=== PATIENT | male | born 1960 | race Caucasian/White ===

== ENCOUNTER 2017-01-29 06:23 | Day surgery (SDC) | payer BC ==
[~2017-01-29 06:23] MED LIST: KETOROLAC TROMETHAMINE 0.45% 4 DROP/0.4 ML DROPERETTE OD PRN
[2017-01-29] MEDS ORDERED: FENTANYL CITRATE INJ/PF 250 MCG/5 ML AMPULE ONE (06:45)
[2017-01-29] MEDS ORDERED: MIDAZOLAM 2 MG/2 ML INJ ONE ×2 (06:45→07:25)
[2017-01-29] MEDS ORDERED: FENTANYL CITRATE INJ/PF 100 MCG/2 ML AMPUL ONE (06:46)
[2017-01-29] MEDS: TROPICAMIDE 1% OPH SOLN 3 ML OD PRN ×3 (06:52→07:09)
[2017-01-29] MEDS: CYCLOPENTOLATE 0.2%/PHENYLEPHRINE 1% OPH SOLN 2 ML OD PRN ×3 (06:52→07:09)
[2017-01-29] MEDS: BESIFLOXACIN HCL 0.6% OPH SUSP 5 ML BOTTLE OD PRN ×4 (06:52→07:57)
[2017-01-29] MEDS: TETRACAINE HCL 0.5% OPH SOLN 2 ML OD PRN ×3 (06:52→07:34)
[2017-01-29] MEDS ORDERED: EPINEPHRINE INJ/PF 1 MG/1 ML AMPULE ONE (07:06)
[2017-01-29] MEDS ORDERED: LIDOCAINE 1% INJ-PF (10 MG/ML) 30 ML SDV ONE (07:06)
[2017-01-29] MEDS ORDERED: CHONDR SU A NA/HYALUR INTRAOC KIT (SURGICARE) ONE (07:06)
[2017-01-29] MEDS ORDERED: ONDANSETRON HCL INJ/PF 4 MG/2 ML SDV ONE (07:25)
--- NOTE | 2017-01-30 08:08 | [facility] OPERATIVE REPORT E ---
[facility] Operative Report NAME: PHIL HOPSON AGE: 56Y DATE OF SURGERY: 01/29/2017 ROOM: PREOPERATIVE DIAGNOSIS: CATARACT, RIGHT EYE. POSTOPERATIVE DIAGNOSIS: CATARACT, RIGHT EYE. OPERATION: Cataract extraction with intraocular lens implant of the right eye. SURGEON: DELISA DELCID M.D. ANESTHESIA: Topical. PROCEDURE: After obtaining appropriate consent, the patient's right eye was prepped and draped in sterile fashion as well as the surgeon in a sterile manner and cataract surgery was started. First a paracentesis blade was used to make a small side-port incision. Viscoelastic was used to inflate the anterior chamber. Next a 2.4 mm incision was made with the paracentesis blade. A continuous capsulorrhexis incision was made using a cystotome and Utrata forceps. Following this hydrodissection was carried out to make the lens fully loose and mobile and it was rotated 90 degrees. Following this, a cvrefn-vnn-wpzvyab technique was used to phacoemulsify the lens with a CDE of 12.84. The remaining cortex was removed with irrigation/aspiration. Provisc was instilled into the capsular bag to inflate the bag. A SN60WF, 21.0 diopter lens was placed. The remaining viscoelastic material was removed with irrigation/aspiration. Following this, a 10-0 Nylon suture was used to close the incision and it was found to be watertight. Vigamox was instilled in the eye and a protective shield was placed over the eye. The patient returned to the postoperative recovery in stable condition. DICTATING PHYSICIAN: DELISA DELCID M.D. 1265M 01 PHY#: [id number] ID: [id number] JOB#: [id number] ACCT: [id number] cc:DELISA DELCID M.D. >
--- NOTE | 2017-01-30 11:53 | [facility] DISCHARGE SUMMARY E ---
[facility] Discharge Summary NAME: PHIL HOPSON AGE: 56Y ADMITTED: 01/29/2017 DISCHARGED: 01/29/2017 HOSPITAL COURSE This is a 56-year-old patient who underwent cataract extraction of the right eye. DIAGNOSIS: CATARACT, RIGHT EYE. INDICATIONS: He underwent surgery because he was having glare from headlights, making it difficult to drive. DISCHARGE INSTRUCTIONS: He should be on a regular diet; no bending at his waist; no heavy lifting. He should use his Besivance, Ilevro and Durezol at 3:00 p.m. and 8:00 p.m.; and, sleep with a rigid shield, and I will see him for 1-day postoperative tomorrow. DICTATING PHYSICIAN: DELISA DELCID M.D. 1265M 03 [facility]#: [id number] ID: [id number] JOB#: [id number] ACCT: [id number] cc:DELISA DELCID M.D. >
== END 2017-01-29 08:34 | disposition home or self-care (01) ==
LOC: SC 06:23
PROVIDERS: ATTEND Internal Medicine
PROC: 08RJ3JZ Replacement of Right Lens with Synthetic Substitute, Percutaneous Approach (ICD-10-PCS; principal; 2017-01-29 07:30)
DX: H25.811 Combined forms of age-related cataract, right eye (principal); I10 Essential (primary) hypertension
CPT/HCPCS: 66984; V2632; J2250; J3490 ×2; J0171; J3010; J2405; 142

== ENCOUNTER 2017-02-19 09:03 | Day surgery (SDC) | payer BC ==
[~2017-02-19 09:03] MED LIST changes: -KETOROLAC TROMETHAMINE 0.45% 4 DROP/0.4 ML DROPERETTE OD PRN; +KETOROLAC TROMETHAMINE 0.45% 4 DROP/0.4 ML DROPERETTE OS PRN
[2017-02-19] MEDS ORDERED: EPINEPHRINE INJ/PF 1 MG/1 ML AMPULE ONE (09:11)
[2017-02-19] MEDS ORDERED: LIDOCAINE 1% INJ-PF (10 MG/ML) 30 ML SDV ONE (09:11)
[2017-02-19] MEDS ORDERED: CHONDR SU A NA/HYALUR INTRAOC KIT (SURGICARE) ONE (09:11)
[2017-02-19] MEDS: BESIFLOXACIN HCL 0.6% OPH SUSP 5 ML BOTTLE OS PRN ×4 (09:38→10:33)
[2017-02-19] MEDS: CYCLOPENTOLATE 0.2%/PHENYLEPHRINE 1% OPH SOLN 2 ML OS PRN ×3 (09:38→09:58)
[2017-02-19] MEDS: TROPICAMIDE 1% OPH SOLN 3 ML OS PRN ×3 (09:38→09:58)
[2017-02-19] MEDS: TETRACAINE HCL 0.5% OPH SOLN 2 ML OS PRN ×3 (09:39→10:10)
[2017-02-19] MEDS ORDERED: MIDAZOLAM 2 MG/2 ML INJ ONE (10:16)
--- NOTE | 2017-02-19 20:02 | [facility] OPERATIVE REPORT E ---
[facility] Operative Report NAME: PHIL HOPSON AGE: 56Y DATE OF SURGERY: 02/19/2017 ROOM: PREOPERATIVE DIAGNOSIS: CATARACT, LEFT EYE. POSTOPERATIVE DIAGNOSIS: CATARACT, LEFT EYE. OPERATION: Cataract extraction with intraocular lens implant of the left eye. SURGEON: DELISA DELCID M.D. ANESTHESIA: Topical. TISSUE REMOVED OR ALTERED: N/A PROCEDURE: After obtaining appropriate consent, the patient's eye was prepped and draped in sterile fashion as well as the surgeon in a sterile manner and cataract surgery was started. First a paracentesis blade was used to make a small side-port incision. Viscoelastic was used to inflate the anterior chamber. Next a 2.4 mm incision was made with the paracentesis blade. A continuous capsulorrhexis incision was made using a cystotome and Utrata forceps. Following this hydrodissection was carried out to make the lens fully loose and mobile and it was rotated 90 degrees. Following this, a glbknj-ise-krkmxjp technique was used to phacoemulsify the lens with a CDE of 6.03. The remaining cortex was removed with irrigation/aspiration. Provisc was instilled into the capsular bag to inflate the bag. A SN60WF, 20.0 diopter lens was placed. The remaining viscoelastic material was removed with irrigation/aspiration. Following this, a 10-0 nylon suture was used to close the incision and it was found to be watertight. Vigamox was instilled in the eye and a protective shield was placed over the eye. The patient returned to the postoperative recovery in stable condition. DICTATING PHYSICIAN: DELISA DELCID M.D. 5139M 1955 PHY#: [id number] ID: [id number] JOB#: [id number] ACCT: [id number] cc:DELISA DELCID M.D. >
--- NOTE | 2017-02-19 20:03 | [facility] DISCHARGE SUMMARY E ---
[facility] Discharge Summary NAME: PHIL HOPSON AGE: 56Y ADMITTED: 02/19/2017 DISCHARGED: 02/19/2017 FINAL DIAGNOSIS: CATARACT, LEFT EYE. HISTORY/CLINIC COURSE: This is a 56-year-old male who underwent cataract extraction without complication, woke up in postoperative recovery in stable condition. He underwent surgery because he was having difficulty secondary to glare from headlights making it difficult to see road signs. Patient is to be on a regular diet. No bending at the waist, no heavy lifting. Patient should use the besivance, illevro, durezol at 3 p.m. and 8 p.m., and sleep with a rigid shield. I will see him for 1 day postoperative tomorrow. DICTATING PHYSICIAN: DELISA DELCID M.D. 5139M 1957 PHY#: [id number] ID: [id number] JOB#: [id number] ACCT: [id number] cc:DELISA DELCID M.D. > MTDD
== END 2017-02-19 11:10 | disposition home or self-care (01) ==
LOC: SC 09:03
PROVIDERS: ATTEND Internal Medicine
PROC: 08RK3JZ Replacement of Left Lens with Synthetic Substitute, Percutaneous Approach (ICD-10-PCS; principal; 2017-02-19 10:30)
DX: H25.812 Combined forms of age-related cataract, left eye (principal); Z96.1 Presence of intraocular lens
CPT/HCPCS: 66984; V2632; J2250; J3490 ×2; J0171; 142